=== PATIENT | male | born 1960 | race Caucasian/White ===

== ENCOUNTER 2020-07-20 07:09 | Outpatient (REF) | payer OTHER, SELFPAY ==
[2020-07-20 12:05] LABS: Alanine Aminotransferase 54 U/L (0-40); Albumin Level 4.4 g/dL (3.5-5.0); Alkaline Phosphatase 99 U/L (39-117); Anion Gap 13 (12-20); Aspartate Amino Transferase 21 U/L (5-37); Bilirubin Total 0.8 mg/dL (0.0-1.0); Blood Urea Nitrogen 17 mg/dL (9-16); Calcium 9.5 mg/dL (8.4-10.2); Carbon Dioxide 30 mmol/L (22-29); Chloride 99 mmol/L (96-108); Cholesterol 204 mg/dL; Estimated Glomerular Filt Rate > 60; HDL Cholesterol 50 mg/dL; LDL Cholesterol Calculated 129 mg/dl; Potassium 4.3 mmol/L (3.3-5.1); Sodium 138 mmol/L (135-145); Total Protein 7.1 g/dL (6.5-8.0); Triglycerides 128 mg/dL
[2020-07-20 12:12] LABS: Creatinine Urine 71.79 mg/dL; Microalbum/Creatinine Ratio Ur 9.7 ug/mg cr
[2020-07-20 12:13] LABS: Glucose Fasting 340 mg/dL (60-99)
[2020-07-20 12:20] LABS: Estimated Average Glucose 295 mg/dL; Hemoglobin A1c % 11.9 %
[2020-07-20 13:07] LABS: Prostate Specific Antigen Scr 5.66 ng/mL (<0.05-4.0)
== END 2020-07-20 07:10 | disposition home or self-care (01) ==
LOC: HO.HMGCLDS 07:09
PROVIDERS: PCP Nurse Practitioner Family; Visit Provider Nurse Practitioner Family
DX: Z00.00 Encounter for general adult medical examination without abnormal findings (principal); R73.9 Hyperglycemia, unspecified; Z12.5 Encounter for screening for malignant neoplasm of prostate
CPT/HCPCS: 36415; 80053; 80061; 82043; 83036; 84153; 84443

== ENCOUNTER 2020-08-01 10:04 | Outpatient (REF) | payer OTHER, SELFPAY ==
[2020-08-03 21:22] LABS: TS Negative Control Passed; TS Panel A 0; TS Panel B 0; TS Positive Control Passed; TSpotTB Negative (SeeBelow)
== END 2020-08-01 10:05 | disposition home or self-care (01) ==
LOC: HO.HMGCLDS 10:04
PROVIDERS: PCP Nurse Practitioner Family; Visit Provider Nurse Practitioner Family
DX: Z11.1 Encounter for screening for respiratory tuberculosis (principal)
CPT/HCPCS: 36415; 86481

== ENCOUNTER 2020-08-05 15:09 | Outpatient (REF) | payer OTHER, SELFPAY ==
[2020-08-06 05:02] LABS: Rubeola IgG (Measles) >300.00 AU/mL; Varicella IgG Antibody >4000.00 index
[2020-08-08 04:22] LABS: HBS Num1 0.45 mIU/mL (0-7.99); HBc Num1 0.07 S/CO (0.00-0.79); Hepatitis B Core Antibody Nonreactive (Nonreactive); ~Hepatitis B Surface Antibody NONREACTIVE (Nonreactive)
[2020-08-08 04:29] LABS: HBsAGNum1 0.16 S/CO (0.00-0.99); Hepatitis B Surface Antigen Negative (Negative); ~HepC Num1 0.05 S/CO (0.00-0.79); ~Hepatitis C Antibody Nonreactive (Nonreactive)
[2020-08-10 07:23] LABS: Hepatitis A Antibody IgM 0.08 Index (0-0.79); ~Hepatitis A Antibody IgM Nonreactive (Nonreactive)
== END 2020-08-05 15:10 | disposition home or self-care (01) ==
LOC: HO.LAB 15:09
PROVIDERS: PCP Nurse Practitioner Family; Visit Provider Nurse Practitioner Family
DX: Z28.3 Underimmunization status (principal)
CPT/HCPCS: 36415; 86704; 86706; 86709; 86735; 86762; 86765; 86787; 86803; 87340

== ENCOUNTER → 2020-08-26 11:37 | Outpatient (BNVA) | payer OTHER, SELFPAY | PROVIDERS: PCP Nurse Practitioner Family; Visit Provider Urology ==

== ENCOUNTER 2024-12-03 07:57 | Emergency (ER) | payer MEDICARE, SELFPAY ==
--- OUTSIDE RECORDS SUMMARY | 2015-05-16 10:30 | XMS_ITS | Continuity of Care Document ---
Author Organization [facility] Address [address] [place] [address] Phone Care Team Providers Care Suede Brusher Name Role Phone Vitaliy Leong MD Unavailable Unavailable Advance Directives Directive Yes / No Effective Date File Name No Information Encounters Encounter Description Practice Location Reason(s) For Visit Diagnoses Date Provider Providers Copied on Encounter [facility], [address] [place], [place] [address], [place], [address], [place] tel:[phone] [employer] No Information Salo Burks. [facility] [place], [place], [id number], [place]. tel:[phone] Referring Provider: Yassine Montalvo OD, [address] [place] [address], [id number]. tel:[phone] Family History Family Member Type Diagnosis Age At Onset No Information Payers Payer name Insurance type Covered libertarian ID Authoriza tion(s) No Information Social History Type Description Quantity Date Captured Comments Sex Male Smoking Status No Information Chief Complaint And Reason For Visit No Information Reason For Referral Reason For Referral No Information History Of Present Illness Encounter Date Complaint History Of Prese nt Illness No Information Functional Status Date Functional Assessmen t No Information Instructions Date Instruction Additional Infor mation No Information Assessments Type Assessment Date No Information Patient Care Teams Name Effective Dates (start - stop) Status Members No Information
[2024-12-03 08:00] VITALS: BP 136/75; PULSE 92; RESP 16; TEMP 36.6; O2SAT 97; BMI 30.8
--- NOTE | 2024-12-03 08:22 | ED_ITS ---
HPI - General Adult General Chief complaint: Epistaxis Stated complaint: Nosebleed, on thinners Time Seen by Provider: 12/03/24 08:16 Source: patient Mode of arrival: ambulatory Limitations: no limitations History of Present Illness ED Provider: PAMELLA CORTEZ PA-C HPI narrative: 64 year old male with pmhx significant for CAD on Brillinta and baby aspirin, DM, HF presents to the ED today for evaluation of recurrent epistaxis x weeks. Patient was evaluated at his PCP on Saturday (7 days ago) for bleeding from left nare. The area was cauterized and he was sent home. Reports left nare began bleeding again the following day. He was evaluated at [facility] at that time with normal H&H. As there was no active bleeding noted, he was discharged home with afrin spray. He began bleeding from his left nare the following day and was re- evaluated at [facility] with similar disposition. He has contacted ENT specialist however is unable to get in until September 2025. He reports going 2-3 days without nasal bleeding however after drinking hot coffee and 3-4 beers yesterday, he began intermittently bleeding from left nare. He reports two episodes of bleeding today around 0200 and 0700, both episodes lasting approx a few minutes before resolving with Afrin spray + nasal clamping. He is not having any active nose bleeding at present. He has no complaints. Denies any facial trauma. Denies headache, dizziness/light headedness, chest pain, palpitations. He has been compliant with his AC. Related Data Previous Rx's ?Medication ?Instructions ?Recorded atorvastatin 10 mg tablet 10 mg PO BEDTIME 30 days #30 tabs 07/24/20 blood sugar diagnostic (Freestyle #100 ea 07/25/20 [employer] strips) blood-glucose meter (Freestyle #1 ea 07/25/20 [employer] meter) lancets 28 gauge (FreeStyle #100 ea 07/25/20 Lancets) metformin 500 mg tablet 500 mg PO BID 30 days #60 ta bs 07/25/20 blood-glucose meter (FreeStyle #1 ea 07/28/20 Lite Meter kit) Allergies Allergy/AdvReac Type Severity Reaction Status Date / Time No Known Allergies Allergy Verified 12/03/24 08:05 Review of Systems 2 Review of Systems: Yes all other systems are reviewed and are negative PMFSH Past Medical History Attestation statement: The following information was validated with the patient. Source: old records reviewed and nursing notes reviewed Family History Family History Mother Family history of thyroid problem Father No problems noted. Social History Social History Alcohol intake: current Alcohol intake frequency: a few times a month Alcohol type: beer Advance Directives: No Advance Directives Information Provided: Yes Physical Exam ED Vital Signs: Vital Signs - 24 hr 12/03/24 08:00 Temperature 97.9 F Pulse Rate 92 Respiratory Rate 16 Blood Pressure 136/75 Pulse Oximetry 97 Oxygen Delivery Method Room Air BMI result Body Mass Index 30.8 vitals stable General: Well appearing, in no acute distress. Skin: Warm, dry, intact. No rashes or lesions. No ecchymoses. Head: Normocephalic, atraumatic. EENT: Hearing is intact b/l. Conjunctiva clear. PERRLA. EOM intact. Moist mucous membranes.? + dried blood noted to left Leslie. No active bleeding. No clots. Posterior oropharynx without blood, clots. Neck: Supple without LAD Cardiac: Chest wall symmetric. RRR Lungs: Normal respiratory effort without accessory muscle use. CTA bilaterally Back: No midline spinous or paraspinal tenderness. No step off deformity. Ext: Upper and lower extremities atraumatic, without tenderness, deformity, swelling or erythema Neuro: AOx3. Normal speech. Ambulating with steady gait. Course Course Course Narrative: CBC showing leukocytosis to 10.9 without left shift. No anemia. H&H stable. Chemistry without acute electrolyte abnormality requiring intervention. BUN mildly elevated at 20 with normal creatinine. Random glucose 247, no anion gap. Liver function WNL. coags wnl. There is dried blood noted to left naris, no active bleeding, no blood noted to posterior oropharynx. No clots. There is no indication for TXA or anterior nasal packing at this time. Patient tells me that he drank 3-4 beers yesterday and has been drinking hot coffee. I informed patient that this could be making his symptoms worse. Advised to discontinue EtOH and hot beverage consumption. He has been prescribed Afrin spray by [facility]. Educated on proper use of this nasal spray. Re-educated him on nasal clamping. ENT referral provided. Advised to contact ENT and PCP for follow up. Patient has remained stable throughout ED visit today. Discussed worrisome signs and symptoms and when to return to the ED. All questions answered at this time. Patient is agreeable with disposition and stable for discharge. Medical Decision Making Medical Decision Making [facility] Narrative: 64 year old male with pmhx significant for CAD on Brillinta and baby aspirin, DM, HF presents to the ED today for evaluation of recurrent epistaxis x weeks. vital signs stable. he is well appearing and in NAD. on exam, there is a small amount of dried blood noted to L nare, no active bleeding. no clots. posterior oropharynx without blood or clots. airway patent, maintaining airway. exam benign. Differential diagnosis includes epistaxis Unlikely liver failure, facial trauma/ fracture Plan for screening labs/ coags, disposition. Differential Diagnosis Differential Diagnoses: The differential diagnosis associated with the presentation includes as above. Admission/Observation not indicated. Lab Data [facility] Lab Attestation statement: I reviewed the patient's lab results. As above 12/03/24 08:23 12/03/24 08:23 Labs: Lab Results 12/03/24 Range/Units 08:23 WBC 10.9 H (4.8-10.8) X10*3/uL RBC 5.23 (4.60-5.80) X10*6/uL Hgb 15.0 (14.0-18.0) g/dl Hct 43.2 (42.0-52.0) % MCV 82.6 (80.0-98.0) fL MCH 28.7 (27.0-33.0) pg MCHC 34.7 (31.0-36.0) g/dl RDW 13.0 (11.0-16.0) % Plt Count 316 (160-400) X10*3/uL MPV 10.0 (9.4-12.4) fL Immature Gran % (Auto) 0.4 (0.0-0.4) % Neut % (Auto) 62.4 (45-73) % Lymph % (Auto) 26.1 (20-40) % Yancey % (Auto) 8.5 (2-11) % Eos % (Auto) 1.9 (0-4) % Baso % (Auto) 0.7 (0-2) % Lymph # (Auto) 2.8 (1.2-4.9) X10*3/uL Yancey # (Auto) 0.9 (0.1-1.2) X10*3/uL Eos # (Auto) 0.2 (0.0-0.4) X10*3/uL Baso # (Auto) 0.1 (0.0-0.2) X10*3/uL Abs Immat Gran (auto) 0.04 H (0.00-0.03) X10*3/uL Absolute Neuts (auto) 6.8 (2.0-8.3) x10*3/uL Absolute Nucleated RBC 0.000 (0.0-0.012) X10*3/uL Nucleated RBC % (auto) 0.0 (0.0-0.2) /100WBC Sodium 137 (135-145) mmol/L Potassium 4.3 (3.3-5.1) mmol/L Chloride 102 (96-108) mmol/L Carbon Dioxide 26 (22-29) mmol/L Anion Gap 13 (12-20) BUN 20 H (9-16) mg/dL Creatinine 0.75 (0.5-1.4) mg/dL Estim Creat Clear Calc 113.4 Estimated GFR > 60 Random Glucose 247 H (60-115) mg/dL Calcium 9.3 (8.4-10.2) mg/dL Total Bilirubin 0.8 (0.0-1.0) mg/dL AST 26 (5-37) U/L ALT 28 (0-40) U/L Alkaline Phosphatase 74 (39-117) U/L Total Protein 7.2 (6.5-8.0) g/dL Albumin 4.5 (3.5-5.0) g/dL External Record Review External record reviewed: Inpatient record, Office record, Outpatient record and Prior outpatient labs [facility] ED records Prescription Management I considered prescription management with: Other (afrin) Social Determinants Patient?s care significantly limited by Social Determinants of Health including: Other Social Determinant of Health Critical Care Time Critical Care Time Critical Care Time: No Discharge Plan Discharge Clinical Impression: Epistaxis Patient Disposition: Home, Self-Care Instructions: Nosebleed (ED) Additional Instructions: You were evaluated in the ED today for nosebleed. You are not actively bleeding. Your blood work is reassuring. Avoid hot beverages for the next 2-3 days as this can increase chance of re- bleeding. If there is recurrence of significant bleeding at home: I recommend blowing your nose to remove the clots before giving yourself several sprays of the oxymetazoline (afrin) spray that I have sent to your pharmacy. After this, apply nasal clamp on your nose again for at least 20 minutes. If after 20 minutes you are no longer bleeding, you do not need to come to the ED. Follow up with ENT (ear, nose, throat). You have been provided with a referral. Call them to make an appointment. They will not call you. Return with new or worsening symptoms. In the case of an emergency call 911. Prescriptions: No Action atorvastatin 10 mg tablet 10 mg PO BEDTIME 30 Days Qty: 30 3RF (DME) blood-glucose meter [FreeStyle Lite Meter] Kit See Rx Instructions .ROUTE .MEDSUPPLY Qty: 1 0RF Rx Instructions: As directed metformin 500 mg tablet 500 mg PO BID 30 Days Qty: 60 2RF (DME) lancets [FreeStyle Lancets] 28 gauge misc See Rx Instructions .ROUTE .MEDSUPPLY Qty: 100 4RF Rx Instructions: use 1 lancet twice a day to test blood sugar (DME) blood-glucose meter [Freestyle [employer]] Misc See Rx Instructions .ROUTE .MEDSUPPLY Qty: 1 0RF Rx Instructions: use meter twice a day to test blood sugar and as needed (DME) Freestyle [employer] Strip See Rx Instructions .ROUTE .MEDSUPPLY Qty: 100 3RF Rx Instructions: use 1 strip twice a day to test blood sugar Referrals: [facility] [Provider Group, Ear, Nose, Throat] Print Language: Greenlandic
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
--- OUTSIDE RECORDS SUMMARY | 2024-12-03 08:22 | XMS_ITS | Data Portability ---
Author Organization [place] [facility], , [facility] Address [address] [place] [address] Care Team Providers Care Satellite Technician Name Role Phone EMMA DOBSON Primary Care Provider KEITH MCDONOUGH Tobacco Grower Unavail able TAWANAJOSE ANTONIO Milton Tobacco Grower [phone] Assessment No assessment recorded. Plan of Treatment Reminders Order Date Submit Date Provider Last Modified By Organization Details Last Modified Time Details Appointments None record ed. Lab rapid strep A 2013 014 [facility], [address] [place] [address], [address], 4 11:34:36 PSA, total [address] [facility], [address] [place] [address], [address], 4 09:11:23 Referral orthop edic referr al - acute left anteri or elbow pain with firm mass in proxim al forear m ? tendon ruptur e 2017 018 NICK Not available 8 08:28:32 Procedures None record ed. Surgeries None record ed. Imaging XR, elbow - acute left anteri or elbow pain [address] [facility] ([facility]), [address], [place], [address], 8 13:23:36 Medication Orders Lidoca ine Viscou s 2 % mucosa l soluti on 2013 [facility]14 [facility] [address] [place] [address], [place], [address], 8 09:27:52 Patient TargetsNo targets recorded. Patient Instructions Encounter Date Encounter Id Patient Instructions Last Modified By Organization Details Last Modified Time 03/02/2013 [id number] Well Visit 50 to 65: Care Instructions sharad Not available 03/02/2013 14:24:57 My Health To Do List As we discussed and agreed upon at your visit please work on the following: My Health To Do List As we discussed and agreed upon at your visit please work on the following: Your Hemoglobin A1C goal is less than 7 Your fasting blood sugar goal is less than 120 proxy form. labs, weight loss discussed. get eys checked. danielle Not available 03/03/2013 12:05:58 08/17/2013 [id number] My Health To Do List As we discussed and agreed upon at your visit please work on the following: Your Hemoglobin A1C goal is less than 6.5 Your fasting blood sugar goal is less than 120 Discussed pros and cons of psa screening. pt wishes this done. Discussed weight gain and risks for diabetes- rising blood sugar. Discussed a plan- less beer and , cheeseburgherers, etc, more exercise. F/U 6 months danielle Not available 08/17/2013 09:09:38 09/07/2013 [id number] SORE THROAT Use ibuprofen 600-800 mg for pain lower Tylenol 650 mg at a time every 6-4 hours respectively. or 1.5 alieve 2x/d Use salt water gargles /8-1/4 teaspoon in 8 ounces of water-gargle and spit. Call if cannot swallow or if there are any breathing difficulties. Note for work. for yest. and rest of today. danielle Not available 09/07/2013 11:34:36 10/09/2017 [id number] After a discussion of treatment options, which included consideration of best practices, patient preferences, and the patient's individual lifestyle and treatment goals, as well as consideration and attempted mitigation of any barriers to meeting the patient's goals, the above treatment plan and objectives were adopted. Good to see you today! - Please review the patient education provided to you today. - Take your medications as prescribed, and please let us know if you have any unwanted or unexpected side effects. - Keep your follow-up appointments as scheduled. - Please let us know if you are worse in any way, or if you have any further questions or concerns. 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 catie Not available 10/09/2017 09:57:26 10/21/2017 [id number] For this presume d distal biceps tendon rupture early surgical referral is recommended. He will get right on that with our referrals department. d/w referals again. They will expidite . danielle Not available 10/21/2017 09:47:04 Reason for Referral Orthopedic Referral for Pain of left elbow joint acute left anterior elbow pain with firm mass in proximal forearm ? tendon rupture Referring Physician: Hector Long, Family Medicine, Encounter Date: 10/09/2017 Results Created Date Observation Date Name Description Value Unit Range Abnormal Flag Note LastModifiedBy Organization Detail LastModifiedTime 09/08/19 14 09/07/2013 rapid strep A Result negati ve Not Available [address], [address], 09/07/2013 11:15:13 03/23/20 13 03/23/2013 hemog lobin A1C w/ mpg hemoglobin A1C 6.2 % 4.8-6. 0 high goal: <7% in patie nts with diabe amy Not Available [address], [address], 03/23/2013 11:03:37 03/23/20 13 03/23/2013 hemog lobin A1C w/ mpg estimated average glucose 131.2 mg/dL Not Available [address], [address], 03/23/2013 11:03:37 03/23/20 13 03/23/2013 basic metab olic panel glucose 116 mg/dL 70-100 high Not Available [address], [address], 03/23/2013 12:39:09 03/23/20 13 03/23/2013 basic metab olic panel BUN 14 mg/dL 7-18 Not Available [address], [address], 03/23/2013 12:39:09 03/23/20 13 03/23/2013 basic metab olic panel creatinine 0.8 mg/dL 0.8-1. 3 Not Available [address], [address], 03/23/2013 12:39:09 03/23/20 13 03/23/2013 basic metab olic panel B/C 17.5 ratio Not Available [address], [address], 03/23/2013 12:39:09 03/23/20 13 03/23/2013 basic metab olic panel GFR 107.1 mL/mi n recom yesica d GFR by the natio nal kidne y found ation >60 mL/mi n/1.7 3m2 - divina l <60 mL/mi n/1.7 3m2 - chron ic kidne y disea se <15 mL/mi n/1.7 3m2 - kidne y failu re Not Available [address], [address], 03/23/2013 12:39:09 03/23/20 13 03/23/2013 basic metab olic panel GFR - if 129.6 mL/mi n for afric an ameri can patie nts: resul ts multi plied by 1.21 Not Available [address], [address], 03/23/2013 12:39:09 03/23/20 13 03/23/2013 basic metab olic panel sodium 141 mmol/ L 136-14 5 Not Available [address], [address], 03/23/2013 12:39:09 03/23/20 13 03/23/2013 basic metab olic panel potassium 4.5 mmol/ L 3.5-5. 1 Not Available [address], [address], 03/23/2013 12:39:09 03/23/20 13 03/23/2013 basic metab olic panel chloride 104 mmol/ L 96-107 Not Available [address], [address], 03/23/2013 12:39:09 03/23/20 13 03/23/2013 basic metab olic panel anion gap 7.8 5.0-15 .0 Not Available [address], [address], 03/23/2013 12:39:09 03/23/20 13 03/23/2013 basic metab olic panel CO2 29 mmol/ L 21-32 Not Available [address], [address], 03/23/2013 12:39:09 03/23/20 13 03/23/2013 basic metab olic panel calcium 9.2 mg/dL 8.5-10 .3 Not Available [address], [address], 03/23/2013 12:39:09 03/23/20 13 03/23/2013 lipid panel cholesterol 180 mg/dL <200 mg/dL josé able 200-2 39 mg/dL borde rline high >240 mg/dL high Not Available [address], [address], 03/23/2013 12:39:14 03/23/20 13 03/23/2013 lipid panel triglyceride s 125 mg/dL <150 mg/dL divina l 150-1 99 mg/dL borde rline high 200-4 99 mg/dL high >500 mg/dL very high Not Available [address], [address], 03/23/2013 12:39:14 03/23/20 13 03/23/2013 lipid panel direct HDL 45 mg/dL Not Available [address], [address], 03/23/2013 12:39:14 03/23/20 13 03/23/2013 lipid panel direct LDL 117 mg/dL risk categ ory LDL goal _ CHD or CHD risk equiv alent s <100 mg/dL (10-y ear risk >20%) 2+ risk facto rs <130 mg/dL (10-y ear risk <= 20%) 0-1 risk facto r <160 mg/dL almo st all peopl e with 0-1 risk facto r have a 10 year risk <10%, thus 10 year risk asses ment in peopl e with 0-1 risk facto r IS not octavio alexis. Not Available [address], [address], 03/23/2013 12:39:14 03/23/20 13 03/23/2013 micro album in rando m urine microalbumin 10.4 mg/L 1.3-20 .0 Not Available [address], [address], 03/23/2013 13:55:16 03/23/20 13 03/23/2013 micro album in, rando m urine creatinine urine 166.2 mg/dL 30.0-1 25.0 high Not Available [address], [address], 03/23/2013 13:55:16 03/23/20 13 03/23/2013 micro album in rando m urine microalb/cre at ratio 6.3 mg/g_ creat 0.0-29 .0 Not Available [address], [address], 03/23/2013 13:55:16 08/11/19 14 08/10/2013 hemog lobin A1C w/ mpg hemoglobin A1C 6.3 % 4.8-6. 0 high goal: <7% in patie nts with diabe amy Not Available [address], [address], 08/10/2013 11:08:30 08/11/19 14 08/10/2013 hemog lobin A1C w/ mpg estimated average glucose 134.1 mg/dL Not Available [address], [address], 08/10/2013 11:08:30 08/11/19 14 08/10/2013 lipid panel cholesterol 168 mg/dL <200 mg/dL josé able 200-2 39 mg/dL borde rline high >240 mg/dL high Not Available [address], [address], 08/10/2013 11:51:17 08/11/19 14 08/10/2013 lipid panel triglyceride s 93 mg/dL <150 mg/dL divina l 150-1 99 mg/dL borde rline high 200-4 99 mg/dL high >500 mg/dL very high Not Available [address], [address], 08/10/2013 11:51:17 08/11/19 14 08/10/2013 lipid panel direct HDL 48 mg/dL Not Available [address], [address], 08/10/2013 11:51:17 08/11/19 14 08/10/2013 LDL calcu lated LDL - calculated 101.4 risk categ ory LDL goal _ CHD or CHD risk equiv alent s <100 mg/dL (10-y ear risk >20%) 2+ risk facto rs <130 mg/dL (10-y ear risk <= 20%) 0-1 risk facto r <160 mg/dL almo st all peopl e with 0-1 risk facto r have a 10 year risk <10%, thus 10 year risk asses ment in peopl e with 0-1 risk facto r IS not neces vanesa. Not Available [address], [address], 08/10/2013 11:51:18 08/18/19 14 08/18/2013 PSA, total PSA 2.56 NG/mL 0.00-4 .00 Not Available [address], [address], 08/18/2013 09:11:23 02/27/20 17 02/26/2017 micro album in, urine microalbumin 5.5 mg/L 1.3-20 .0 Not Available [address], [address], 02/26/2017 09:40:58 02/27/20 17 02/26/2017 micro album in, urine creatinine urine 102.9 mg/dL 30.0-1 25.0 Not Available [address], [address], 02/26/2017 09:40:58 02/27/20 17 02/26/2017 micro album in, urine microalb/cre at ratio 5.3 mg/g_ creat 0.0-29 .0 Not Available [address], [address], 02/26/2017 09:40:58 02/27/20 17 02/26/2017 HbA1c (hemo globi n A1c), blood hemoglobin A1C 7.6 % 4.8-6. 0 high Goal: <7% in Patie nts with Diabe amy Not Available [address], [address], 02/26/2017 10:18:29 02/27/2002/26/2017 HbA1c (hemo globi n A1c), blood estimated average glucose 171.4 mg/dL Not Available [address], [address], 02/26/2017 10:18:29 02/27/2002/26/2017 BMP, serum or plasm a glucose 132 mg/dL 70-100 high Not Available [address], [address], 02/26/2017 11:50:12 02/27/2002/2602/26/2017 BMP, serum or plasm a BUN 14 mg/dL 7-18 Not Available [address], [address], 02/26/2017 11:50:12 02/27/20 17 02/26/2017 BMP, serum or plasm a creatinine 0.7 mg/dL 0.8-1. 3 low Not Available [address], [address], 02/26/2017 11:50:12 02/27/20 17 02/26/2017 BMP, serum or plasm a B/C 20.0 ratio Not Available [address], [address], 02/26/2017 11:50:12 02/27/20 17 02/26/2017 BMP, serum or plasm a GFR -non 123.1 mL/mi n Recom yesica d GFR by the Natio nal Kidne y Found ation >60 mL/mi n/1.7 3m2 - Divina l <60 mL/mi n/1.7 3m2 - Chron ic Kidne y Disea se <15 mL/mi n/1.7 3m2 - Kidne y Failu re Not Available [address], [address], 02/26/2017 11:50:12 02/27/20 17 02/26/2017 BMP, serum or plasm a GFR - if 149.0 mL/mi n For Afric an Ameri can patie nts: Resul ts Multi plied by 1.21 Not Available [address], [address], 02/26/2017 11:50:12 02/27/20 17 02/26/2017 BMP, serum or plasm a sodium 143 mmol/ L 136-14 5 Not Available [address], [address], 02/26/2017 11:50:12 02/27/20 17 02/26/2017 BMP, serum or plasm a potassium 4.4 mmol/ L 3.5-5. 1 Not Available [address], [address], 02/26/2017 11:50:12 02/27/20 17 02/26/2017 BMP, serum or plasm a chloride 104 mmol/ L 96-107 Not Available [address], [address], 02/26/2017 11:50:12 02/27/20 17 02/26/2017 BMP, serum or plasm a anion gap 12.5 5.0-15 .0 Not Available [address], [address], 02/26/2017 11:50:12 02/27/20 17 02/26/2017 BMP, serum or plasm a CO2 27 mmol/ L 21-32 Not Available [address], [address], 02/26/2017 11:50:12 02/27/20 17 02/26/2017 BMP, serum or plasm a calcium 9.3 mg/dL 8.5-10 .3 Not Available [address], [address], 02/26/2017 11:50:12 02/27/20 17 02/26/2017 lipid panel , serum cholesterol 176 mg/dL <200 mg/dl José able 200-2 39 mg/dl Borde rline High >240 mg/dl High Not Available [address], [address], 02/26/2017 11:50:13 02/27/20 17 02/26/2017 lipid panel , serum triglyceride s 60 mg/dL <150 mg/dL Divina l 150-1 99 mg/dL Borde rline High 200-4 99 mg/dL High >500 mg/dL Very High Not Available [address], [address], 02/26/2017 11:50:13 02/27/20 17 02/26/2017 lipid panel , serum direct HDL 47 mg/dL Not Available [address], [address], 02/26/2017 11:50:13 02/27/20 17 02/26/2017 LDL, manasa kahn , serum (OBS) LDL - calculated 117.0 RISK CATEG ORY LDL GOAL _ CHD or CHD Risk Equiv alent s <100 mg/dl (10-y ear risk >20%) 2+ Risk Facto rs <130 mg/dl (10-y ear risk <= 20%) 0-1 Risk Facto r <160 mg/dl Almo st all peopl e with 0-1 risk facto r have a 10 year risk <10%, thus 10 year risk asses ment in peopl e with 0-1 risk facto r is not neces vanesa. Not Available [address], [address], 02/26/2017 11:50:14 02/27/20 17 02/27/2017 hepat itis C virus Ab, serum hepatitis C antibody NON-RE ACTIVE non-re active normal Not Available [facility] [address], [address], 02/27/2017 11:56:13 02/27/20 17 02/27/2017 hepat itis C virus Ab, serum signal to cut-off 0.01 <1.00 normal Not Available [facility] [address], [address], 02/27/2017 11:56:13 11/07/19 18 11/06/2017 lipid panel , serum cholesterol 202 mg/dL <200 mg/dl José able 200-2 39 mg/dl Borde rline High >240 mg/dl High Not Available [address], [address], 11/06/2017 11:21:54 11/07/19 18 11/06/2017 lipid panel , serum triglyceride s 132 mg/dL <150 mg/dL Divina l 150-1 99 mg/dL Borde rline High 200-4 99 mg/dL High >500 mg/dL Very High Not Available [address], [address], 11/06/2017 11:21:54 11/07/19 18 11/06/2017 lipid panel , serum direct HDL 41 mg/dL <40 mg/dl - Major Risk for CHD >60 mg/dl - Negat geoff Risk for CHD Not Available [address], [address], 11/06/2017 11:21:54 11/07/19 18 11/06/2017 LDL, mikou nellad , serum (OBS) LDL - calculated 134.6 RISK CATEG ORY LDL GOAL _ CHD or CHD Risk Equiv alent s <100 mg/dl (10-y ear risk >20%) 2+ Risk Facto rs <130 mg/dl (10-y ear risk <= 20%) 0-1 Risk Facto r <160 mg/dl Almo st all peopl e with 0-1 risk facto r have a 10 year risk <10%, thus 10 year risk asses ment in peopl e with 0-1 risk facto r is not neces vanesa. Not Available [address], [address], 11/06/2017 11:21:55 11/07/19 18 11/06/2017 HbA1c (hemo globi n A1c), blood hemoglobin A1C 10.5 % 4.8-6. 0 high Goal: <7% in Patie nts with Diabe amy Not Available [address], [address], 11/06/2017 12:43:31 11/07/19 18 11/06/2017 HbA1c (hemo globi n A1c), blood estimated average glucose 254.7 mg/dL Not Available [facility] [address] [facility], [place], [address], 11/06/2017 12:43:31 10/10/19 18 10/09/2017 XR, elbow OBSERV ATION: Left elbow 3 views HISTOR Y: Post exerti onal pain COMPAR BRITTANIE: None Findin gs: Minera lizati on, the joint spaces , and alignm ent are normal . No signif icant degene rative change s or posttr aumati c abnorm alitie s are presen t. IMPRES CAM: No signif icant radiog raphic abnorm alitie s. CODE: code POS: VMG Electr onical ly signed Randy urbina Physic manuel: Jakob Delarosa NICK [facility] ([facility]) [address], [place], [address], 10/10/2017 15:53:35 11/08/19 18 11/06/2017 MRI elbow witho ut contr ast (left ) HISTOR Y: Pain and palpab le abnorm ality. Dimini shed range of motion . Biceps strain . COMPAR BRITTANIE: None TECHNI QUE: Three plane proton densit y fat sat, axial T1 and STIR, and sagitt al T2-faheem ghted sequen shirley are obtain ed. FINDIN GS: There is partia l tearin g at the biceps insert ion at the radial tuberc le. This appear s to be of grade 1-2 but there is not comple te disrup tion. There is fluid along portio ns of the distal tendon near the palpab le abnorm ality but no other associ ated mass is seen. There is no retrac tion. No strain signal within the lower portio n of the muscle belly. No other strain signal region ally. No marrow signal change . No joint effusi on. IMPRES CAM: Grade 1-2 distal biceps strain . Some of the distal fibers are very attenu ated but no comple te disrup tion is curren tly presen t. No soft tissue masses of concer n. [id number] Edited by: Elba Montalvo en on 11/08/19 8:39 AM Electr onical ly Signed by: IBRAHIMA GONZALEZ LY on 11/08/19 18 9:44 AM Interp reted by: Ibrahima tolbert MD Signed by: Ibrahima tolbert MD 11/07/17 CC Recipi ents: Theresa Ferraro Plumas , DO - In Basket (autho rizing provid er) Final result Sudden onset of pain and lump in area of proxim al anteri or forear m upon liftin g heavy object / x about 4 weeks / now, poor and painfu l rom in lt hand / lumpI marked with oil bead marker / ran, E LBOW BICEPS TEAR' series amh rad EMMA B FEINLA ND [email or web address] [facility] [address] [facility], [place], [address], 11/07/2017 10:21:06 Result Notes Documentation Provider Name and Address Organization Details Recorded Time Xr, Elbow : OBSERVATION: Left elbow 3 views HISTORY: Post exertional pain COMPARISON: None Findings: Mineralization, the joint spaces, and alignment are normal. No significant degenerative changes or posttraumatic abnormalities are present. IMPRESSION: No significant radiographic abnormalities. CODE: code POS: VMG Electronically signed Reading Physician: Jakob Long PA-C [address] [place] [address], [phone], [facility] 10/09/2017 13:42:10 Problems Name Problem SNOMED Code Status Onset Date Resolution Date Notes Provider Name and Address Organization Details Recorded Time Type 2 diabetes mellitus without complicati on 158510936 Active Carlene alejandro [facility] 5 15:52:16 Acute upper respirator y infection 11870775 Completed 04/22/2013 Not Available [facility] 3 02:02:18 Low back pain 092898949 Active Not Available [facility] 3 03:15:17 Neck pain 55341054 Completed 04/22/2013 Not Available [facility] 3 02:00:36 Diabetes mellitus 84663188 Active Noni alejandro [facility] 4 10:03:47 Problem Notes None recorded. Procedures Surgical History Date Name Laterality Status Provider Name and Address Organization Details Recorded Time 2 Glucose Meter Teaching completed Ashly Gonzalez RN [facility] 10/12/2011 10:44:48 Imaging Results None recorded. Procedure Notes None recorded. Medical Equipment None Reported. Allergies No known drug allergies Medications Name Sig Start Date Stop Date Status Note LastModified by Organization Details LastModified Time cyclobenz aprine 10 mg tablet Take 1 tablet twice a day by oral route for 30 days. 01/12 completed Not Available Not Available Not Available amoxicill in 500 mg capsule active Not Available Not Available Not Available metformin 500 mg tablet TAKE 1 TABLET BY MOUTH EVERY DAY WITH A MEAL active Not Available Not Available No t Available pravastat in 40 mg tablet Take 1 tablet every day by oral route for 30 days. active Not Available Not Available No t Available ibuprofen 800 mg tablet Take 1 tablet 3 times a day by oral route. 2009 active Not Available Not Available Not Avai lable Lidocaine Viscous 2 % mucosal solution Take 10 millilit ers gargle and spit out by oral route every 2-4 hours as needed for sore throat. 10/09 completed Not Available Not Available Not Available acetamino phen 300 mg-codein e 30 mg tablet 10/21 completed not currentl y taking 10/09/17 KRB Not Available Not Available Not Available meloxicam 7.5 mg tablet active Not Available Not Available Not Available terbinafi ne HCl 250 mg tablet TAKE 1 TABLET BY MOUTH EVERY DAY active Not Available Not Available No t Available methocarb cindi 750 mg tablet active ONE PO TID PRN Not Available Not Available Not Available tamsulosi n 0.4 mg capsule 10/09 completed Not Available Not Available Not Available econazole nitrate 1 % topical cream apply to feet and nails daily 2011 active Not Available Not Available Not Avai lable naproxen sodium 550 mg tablet 10/09 completed Not Available Not Available Not Available pravastat in 20 mg tablet Take 1 tablet every day by oral route. active Not Available Not Available No t Available metaxalon e 800 mg tablet active Not Available Not Available Not Available OneTouch UltraSoft Lancets USE 2-3 TIMES A DAY OR DIRECTED 2012 active Not Available Not Available Not Avai lable PEG-3350 with flavor packs 420 gram oral solution active Not Available Not Available Not Available OneTouch Delica Lancets 33 gauge active Not Available Not Available Not Available OneTouch Verio test strips test blood sugar 2-3x/day 2017 active Not Available Not Available Not Avai lable Vitals Date Recorded Body weight Body height Body mass index (BMI) Heart rate Systolic And Diastolic Provider Name and Address Organization Details Last Updated DateTime 08/17/2013 962882.3 5354 g 173.99 cm 36.3 kg/m2 64 /min 130/74 mm[Hg] Ronny [facility] 4 08:30:38 Date Recorded Body height Body weight Body mass index (BMI) Heart rate Systolic And Diastolic Provider Name and Address Organization Details Last Updated DateTime 09/07/2013 173.99 cm 330255. [address]607 g 36.4 kg/m2 67 /min 142/90 mm[Hg] Ronny [facility] 4 11:15:13 Date Recorded Body weight Heart rate Systolic And Diastolic Provider Name and Address Organization Details Last Updated DateTime 10/09/2017 649471.28 g 72 /min 130/78 mm[Hg] [facility] 10/09/2017 09:32:10 Date Recorded Body weight Heart rate Systolic And Diastolic Provider Name and Address Organization Details Last Updated DateTime 10/21/2017 557920.87 g 68 /min 128/76 mm[Hg] Rolanda Beltrán [facility] 10/21/2017 09:24:43 Date Recorded Body height Body weight Body mass index (BMI) Heart rate Systolic And Diastolic Provider Name and Address Organization Details Last Updated DateTime 03/02/2013 173.99 cm 331751.7 07710 g 35.7 kg/m2 68 /min 92/60 mm[Hg] Didi Rees [facility] 03/02/2013 13:57:02 Social History Question Answer Notes LastModified by Organizat ion Details LastModified Time Tobacco Smoking Status Never Smoker Not Available [facility] 04/19/2011 04:53:49 What Is Your Level Of Caffeine Consumption? None [email or web address] Information not available 11/07/2011 What Type Of Diet Are You Following? SPECIFIC No Sugar, No Whites [email or web address] Information not available 11/07/2011 Live Alone Or With Others? With Others [email or web address] Information not available 11/07/2011 Patient Has Health Care Proxy Signed And In Chart No Would Be Sully Jovon [facility] Information not available 03/02/2013 Marital Status Domestic Partner Engaged,Justyna dietz Information not available 11/07/2011 What Was The Date Of Your Most Recent Tobacco Screening? 10/21/2017 Information not available 12/24/2018 How Many Children Do You Have? 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 [facility] Information not available 06/11/2012 Mental Status None recorded. Family History Nothing Reported Notes:negative. Medical History Condition Response Diabetes Type II Y Past Encounters Encounter ID Performer Location Encounter Start Date Encounter Closed Date Diagnosis/Indication Diagnosis SNOMED-CT Code Diagnosis ICD10 Code Diagnosis Note [id number] Lurdes De La Cruz NP , [facility], OFF[address] [place] [address] 12/01/2009 13:47:45 12/08/2009 15:00:21 [id number] MD MAIRA Mccormack, [facility], [address] [place] [address] 12/06/2009 15:34:54 12/12/2009 14:51:20 [id number] Emma Dobson MD , [facility], [address] [place] [address] 12/13/2009 15:00:05 12/16/2009 15:02:11 [id number] Cayden Garay DPT Physical Therapy, [facility] [address] [place] [address] 12/15/2009 10:15:07 12/15/2009 15:32:28 [id number] Cayden Garay DPT Physical Therapy, [address] [phone] 12/19/2009 08:49:15 12/20/2009 10:00:53 [id number] REJI PachecoT Physical Therapy, [facility] [address] [facility] [place] [address] 12/21/2009 08:43:47 12/21/2009 16:10:49 [id number] Scott Hale MD , [facility], OFFICE [address] [facility] [place] [address] 12/27/2009 11:54:17 12/30/2009 10:50:27 [id number] REJI PachecoT Physical Therapy, [facility] [address] [facility] [place] [address] 12/27/2009 13:01:21 12/27/2009 14:56:45 [id number] REJI PachecoT Physical Therapy, [address] [facility] [place] [address] 01/05/2010 15:49:44 01/06/2010 15:21:42 [id number] REJI PachecoT Physical Therapy, [address] [facility] [place] [address] 01/18/2010 17:13:11 01/19/2010 09:50:29 [id number] Emma Dobson MD , [facility], OFFICE [address] [place], [place] [address] on [facility] [place] [address] 02/14/2010 17:26:06 02/17/2010 08:29:21 [id number] REJI PachecoT Physical Therapy, [address] [facility] [place] [address] 04/20/2010 06:00:31 04/20/2010 11:32:11 [id number] REJI PachecoT Physical Therapy, [address] [facility] [place] [address] 05/03/2010 16:52:30 05/04/2010 08:18:32 [id number] Emma Dobson MD , [facility], OFFICE [address] [place], [place] [address] on [facility] [place] [address] 08/01/2010 17:21:43 08/08/2010 14:34:42 [id number] Marija Benavidez MD , [facility], OFFICE [address] [place] [phone] 10/12/2011 08:41:22 10/12/2011 10:38:27 [id number] Emma Dobson MD , [facility], OFFICE [address] [place] [address] [place] [address] 11/07/2011 14:53:52 11/07/2011 16:26:36 [id number] Emma Dobson MD , [facility], OFFICE [address] [place] [address] 02/01/2012 13:14:59 02/01/2012 14:22:55 [id number] Emma Dobson MD , [facility], OFFICE [address] [place] [phone] 06/11/2012 14:45:39 06/11/2012 16:25:40 [id number] Emma Dobson MD , [facility], OFFICE [address] [place] [phone] 03/02/2013 13:36:57 03/02/2013 14:25:02 Adult health examination [id number] see Risk Assessment and Lifestyle Change Counseling section above Counseling [id number] Benign ess ential hypertension [id number] continue to work on diet ,exercisea nd lowering salt intake as discussed Diabetes mellitus [id number] Emma Dobson MD , [facility], OFFICE [address] [place] [phone] 08/17/2013 08:18:49 08/17/2013 09:17:13 Benign essential hypertension [id number] continue to work on diet ,exercisea nd lowering salt intake as discussed Mixed hyperlipidemia [id number] continue to work on diet and exercise as discussed Type 2 blanca betes mellitus without complication [id number] Screening for malignant neoplasm of prostate [id number] MD MAIRA Mccormack, [facility], OFFICE [address] [place] [address] 09/07/2013 11:07:25 09/07/2013 11:37:41 Pharyngitis [id number] Carole Wheeler D.O. , [facility], OFFICE [address] [place] [address] 10/09/2017 09:17:17 10/09/2017 10:01:51 Pain of left elbow joint [id number] M25.522 Anterior elbow pain with firm mass distal to cubital fossa concerning for possible tendon rupture.Ch radha xray.Stat referral to ortho for further eval.OOW until evaluated by ortho. [id number] Emma Dobson MD , [facility], OFFICE [address] [place] [address] 10/21/2017 09:11:57 10/21/2017 09:49:20 Traumatic rupture of biceps tendon [id number] S46.212D Health Concerns Section Related Observation LastModified by Organization Detai ls LastModified Time None Recorded Concern Status LastModified by Organization Details LastModified Time None Recorded Advance Directives Directive None Recorded Payers Insurance Date Sequence Insurance Name Policy Number Policy Shah Covered Member ID Shah Member ID Guarantor Name 10/07/2024 1 [facility] [place] PLAN (O) [id number] Davin Crawley [id number] Davin Crawley 03/07/2010 2 *SELF PAY* Vi ctor Denisa 10/07/2024 [employer] Davin Crawley 10/07/2024 1 [employer] [id number] Davin Crawley [id number] Davin Crawley 10/07/2024 MARIAM Davin Crawley 10/07/2024 1 [employer] - [facility] (PPO) [id number] Davin Crawley [id number] Davin Crawley 10/07/2024 1 [employer] [id number] Davin Crawley [id number] Davin Crawley 10/07/2024 1 [facility] [facility] [employer] (O) Davin Crawley [id number] Davin Crawley Notes Date Note Type Note Provider Name and Address Organization Details Recorded Time 03/02/2013 text/html was coming out o f BR at work- door slammed on his fingers. got neg X-ray. Emma Dobson MD [address] [place] [address], [phone], [facility] 03/03/2013 12:07:05 09/07/2013 text/html sick since 09/03, fever, ST, chillls, ahces. missed work 09/04. Not sleeping. MIld cough. GF sick for a wk. Using SWG's. Hard to swallwo. Emma Dobson MD [address] [place] [address], [phone], [facility] 09/08/2013 12:31:27 10/09/2017 text/html Left arm pain x 2 days.Lots of heavy lifting at work. 10 hr shifts.Gradually progressing pain in left forearm and left elbow, started yesterday morning while at work.Swelling.Numb ness in fingers today. Rare tingling.Weakness, unable to lift anything.No redness, F/C.No prior injury to this area. Hector Long PA-C [address] [place] [address], [phone], [facility] 10/09/2017 10:00:45 10/21/2017 text/html Patient is here for some back pain he thinks the Aleve is helping. He is more concerned about his left forearm pain. She was lifting something at work on 10/08 when he heard a pop in the biceps and now he has difficulty lifting the forearm and externally rotating. He is been having trouble with the setting up of the appointment due to Worker's Comp. We just did scallop dredger's Comp. and leave a message and then the referrals department who checked a quick view and noted that the claim number is in and they will start working on it immediately. Emma Dobson MD [address] [place] [address], [phone], [facility] 10/21/2017 09:47:10
--- OUTSIDE RECORDS SUMMARY | 2024-12-03 08:22 | XMS_ITS | Clinical Summary ---
Author Organization [facility] Address [address] [place] [address] Care Team Providers Care Services Executive Name Role Phone Jose Martin Harley MD PhD Primary Care Provider Allergies No known active allergies Medications erythromycin (ILOTYCIN) ophthalmic ointment Place a small ribbon of ointment inside the lower eyelid of the affected eye every four hours while awake 3.5 g 10/24/2023 Active Social History Tobacco Use Types Packs/Day Years Used Date Smoking Tobacco: Never Assessed Sex and Gender Information Value Date Recorded Sex Assigned at Male 10/24/2023 3:03 PM EDT Legal Sex Male 11:53 AM EST Gender Identity Male 10/24/2023 3:03 PM EDT Sexual Orientation Heterosexual (straight) 10/23 3:03 PM EDT Last Filed Vital Signs Vital Sign Reading Time Taken Comments Blood Pressure 135/85 10/24/2023 2:17 PM EDT Pulse 79 10/24/2023 2:17 PM EDT Temperature 36.2 C (97.2 F) 10/24/2023 2:17 PM EDT Respiratory Rate 18 10/24/2023 2:17 PM EDT Oxygen Saturation 96% 10/24/2023 2:17 PM EDT Inhaled Oxygen Concentration - - Weight - - Height - - Body Mass Index - - Plan of Treatment Health Maintenance Due Date Last Done Comments Hepatitis C Virus Screening 1960 DTaP/Tdap/Td Vaccines (1 - Tdap) 1977 Colonoscopy 10/06/2003 Pneumococcal Vaccines 50+ (1 of 1 - PCV) 2008 Zoster (Shingles) Vaccine (1 of 2) 2008 COVID-19 Vaccine ( - season) 2024 04/18/2022, 03/27/2021, 09/11/2020, Additional history exists Influenza Vaccine 01/01/2025 04/13/2023, 03/14/2022 RSV Vaccine 60 years and older and Patients (1 - 1-dose 75+ series) 2033 HIV Screening Discontinued 06/05/2023 Hepatitis B Vaccines Aged Out No long er eligible based on patient's age to complete this topic Insurance MEDICARE PART A MEDICAID OUT OF STATE [facility] MEDICARE PART A & B [facility] MCR SUPPLEMENT ONLY Care Teams Services Executive Relationship Specialty Start Date End Date Jose Martin Harley MD PhD PCP - General Internal Medicine 10/24/23
[2024-12-03 08:27] LABS: MANUAL DIFF FLAG NO
[2024-12-03 08:28] LABS: Hematocrit 43.2 % (42.0-52.0); Hemoglobin 15.0 g/dl (14.0-18.0); Imm Gran Abs Auto 0.04 X10*3/uL (0.00-0.03); Imm Gran Pct Auto 0.4 % (0.0-0.4); Lymphocytes Absolute Auto 2.8 X10*3/uL (1.2-4.9); Mean Corpuscular HGB Conc 34.7 g/dl (31.0-36.0); Mean Corpuscular Hemoglobin 28.7 pg (27.0-33.0); Mean Corpuscular Volume 82.6 fL (80.0-98.0); NRBC Abs Auto 0.000 X10*3/uL (0.0-0.012); NRBC Pct Auto 0.0 /100WBC (0.0-0.2); Platelet Count 316 X10*3/uL (160-400); Red Blood Count 5.23 X10*6/uL (4.60-5.80); White Blood Count 10.9 X10*3/uL (4.8-10.8)
[2024-12-03 08:41] LABS: Alanine Aminotransferase 28 U/L (0-40); Albumin Level 4.5 g/dL (3.5-5.0); Alkaline Phosphatase 74 U/L (39-117); Anion Gap 13 (12-20); Aspartate Amino Transferase 26 U/L (5-37); Blood Urea Nitrogen 20 mg/dL (9-16); Calcium 9.3 mg/dL (8.4-10.2); Carbon Dioxide 26 mmol/L (22-29); Chloride 102 mmol/L (96-108); Creatinine Clr Calc Pharmacy 113.4; Estimated Glomerular Filt Rate > 60; Potassium 4.3 mmol/L (3.3-5.1); Sodium 137 mmol/L (135-145); Total Protein 7.2 g/dL (6.5-8.0)
[2024-12-03 09:31] LABS: INTERNATIONAL NORM RATIO 1.0 (0.9-1.1); Prothrombin Time 11.1 SEC (10.9-12.4)
[2024-12-03 09:33] LABS: Partial Thromboplastin Time 33.4 SEC (26.0-36.8)
[2024-12-03 09:45] VITALS: BP 153/90; PULSE 61; RESP 16; O2SAT 96
[2024-12-03 10:06] VITALS: BP 153/90; PULSE 61; RESP 16; TEMP 36.2; O2SAT 96
== END 2024-12-03 10:06 | disposition home or self-care (01) ==
PROVIDERS: Physician Assistant Medical; Emergency Provider Emergency Medicine Emergency Medical Services; PCP Dentist General Practice
DX: R04.0 Epistaxis (principal); I25.10 Atherosclerotic heart disease of native coronary artery without angina pectoris; Z79.899 Other long term (current) drug therapy
CPT/HCPCS: 36415; 80053; 85025; 85610; 85730; 99283; 99284